=== PATIENT | female | born 1975 | race Caucasian/White ===

== ENCOUNTER 2017-03-24 10:28 | Inpatient (IN) | payer OTHER ==
[2017-03-24] MEDS ORDERED: VENL75TA3 PO (13:36)
[2017-03-24] MEDS ORDERED: ESCI20TA38 PO (13:36)
[2017-03-24] MEDS: OLANZapine Zydis ODT 5 mg Tablet PO SCH ×3 (14:10→20:55)
[2017-03-24] MEDS ORDERED: Alum-Mag Hydrox-Simeth 30 mL Suspension PO PRN (14:10)
[2017-03-24] MEDS ORDERED: Benzocaine-Menthol Lozenge 2/Pkg PO PRN (14:10)
[2017-03-24] MEDS ORDERED: Magnesium Hydroxide 10 mL Oral Concentration PO PRN (14:10)
[2017-03-24] MEDS ORDERED: LORazepam 1 mg Tablet PO PRN (14:10)
[2017-03-24] MEDS: Venlafaxine XR 75 mg ER24 Capsule PO SCH (17:24)
--- NOTE | 2017-03-24 23:41 | HP ---
[address] [address] HISTORY AND PHYSICAL PATIENT: MILY PETERSEN : 1975 MR#: [id number] ADMIT: 03/24/2017 JOB ID: [id number] DATE: 03/24/2017 IDENTIFYING DATA: The patient is a 41-year-old female with a history of major depression, recurrent, with psychotic features who is detained on a 72-hour hold. CHIEF COMPLAINT: The patient was unable to provide any chief complaint and instead appear to shudder at times while standing in the bathroom door way and clutching the frame of the door. HISTORY OF PRESENT ILLNESS: The information is taken from the [facility] report and the [facility] emergency department report. The patient was brought in by her , and they are apparently currently . He reportedly was with her and they were going to slat pickler an automobile, when he noticed that she seemed confused and distracted and took over driving. This rapidly progressed and she was unable to speak at all and intermittently repeated phrases to herself. She has a history of several prior episodes, the 1st after the loss of their son. They have two daughters currently at a friend's house and they normally reside with the patient. She had a similar episode earlier this year and was sent to [place] for psychiatric admission, and diagnosis per her was depression with psychotic features. According to the [facility] notes, [facility] indicate she was previously detained in September 2016 and was in inpatient treatment for approximately two weeks and discharged to community followup with Tiki Cosby. She has a history of multiple CARLY evaluation in attempts to stabilize the community and was detained as gravely disabled when her symptoms were described as "paranoid and delusional thoughts, extreme depression and anxiety, labile affect (ongoing almost continual crying spells), extreme confusion, identity confusion, poor memory...." Records also indicate that she did not believe her was her and questioned the identity of herself and others. According to [facility] notes, law enforcement was called to assist and took her home where she continued to decline and was then brought to the emergency department. According to the , this is the 3rd episode of psychosis, the 1st being after their 7-week-old son and the 2nd earlier this year. He reported that she believes that she is traveling through time and trying to get to when their son was alive and there is something about the eclipse to where she thinks she is no longer able to do this. According to one of the nurses during intake today, she did mention something about and eclipse. According to the patient's daughter, over the weekend she appeared to be down and had spent much time in bed. There is no history of violence or suicidal tendencies, according to the report. Although able to engage verbally with the [facility], she was not able to provide any coherent history. PAST PSYCHIATRIC HISTORY: As noted above, the patient has been previously psychiatrically hospitalized, most recently in September 2016 and is followed in the community, T[facility] Cosby. While hospitalized she was treated with olanzapine 10mg and escitalopram 10mg daily. PAST MEDICAL HISTORY: Anemia during , cardiac abnormalities, gestational diabetes, history of chickenpox, loss of infant June 2014, varicosities. SURGICAL HISTORY: Bartholin gland cyst excision, wisdom tooth extraction. CURRENT MEDICATIONS: 1. Venlafaxine 75 mg twice daily appears to be the most recent. 2. Escitalopram 20 mg daily was prescribed December, does not appear current. ALLERGIES: 1. CHITIN which causes hives. 2. ALCOHOL, hives. 3. CINNAMON, hives. 4. CLARITHROMYCIN, shortness of breath, heart palpitations. 5. VANILLA, hives and cheeks burning. FAMILY HISTORY: Mother with miscarriages and still births. Father with diabetes, sister with cancer and a sister with miscarriages and still births. SOCIAL HISTORY: The patient is apparently from her and has two children, Joanne age 6 and Meme age 3, and four grown stepchildren. PHYSICAL EXAMINATION: Vital signs were 125/99, pulse 121, temp 36.8, SpO2 97%. Otherwise, unremarkable per [facility]. LABORATORY STUDIES: Showed WBC of 12.7, absolute neutrophils 11.6 and absolute lymphocytes 0.7. Anion gap of 15, glucose 174. Urinalysis was straw-colored with trace ketones and urine drug screen was normal. Alcohol was normal. Serum was negative. MENTAL STATUS EXAMINATION: Appearance: The patient is a mildly unkempt-appearing female wearing street clothing. She appears to be crying at times and shuddering, standing in the bathroom doorway. Behavior: As noted above. Speech: The patient is mute. Content of thought: The patient shakes her head no that she has neither suicidal nor homicidal ideation. She does endorse auditory hallucinations and reports that these are command in nature, telling her not to speak. This is obtained through a process of elimination. She denies visual hallucinations. Thought processes: Difficult to assess due to mutism and apparent thought blocking. Insight and judgment: Unable to assess but appeared impaired. Memory and concentration: Could not be assessed due to level of impairment. Orientation: Could not be assessed due to level of impairment. Intelligence: Appears to be in the average range based upon history and education. Sensorium: Unable to assess due to level of impairment. IMPRESSION: The patient is a 41-year-old female with a history of recurrent major depression with psychotic features. She has had a fairly rapid decompensation, as noted in history. According to the , she has responded to psychiatric medications fairly rapidly but, at this point, is refusing all medications. The patient will likely need a medication override to assist with medication compliance. DSM-IV DIAGNOSES: [place] I Major depression, recurrent, with psychotic features, by history. [place] II Deferred. [place] III See past medical history. [place] IV Grief over of child, separation from marriage. [place] V Global Assessment of Functioning 20. PLAN: 1. The patient will be admitted to the inpatient psychiatric unit and provided a safe and secure environment. 2. The patient is currently denying suicidal ideation and has no history of self-injurious behavior, and so will not need a one-to-one at this time. 3. The patient will be encouraged to participate with group and milieu therapy when somewhat more stabilized. 4. The patient will be seen by the treatment team on a daily basis to assess symptoms, side effects and response to treatment. 5. Venlafaxine 75 mg p.o. b.i.d. will be restarted. 6. The patient will be offered olanzapine 5 mg b.i.d. 7. Lorazepam 1 mg p.o. q. 4 hours p.r.n. anxiety or agitation. 8. Hydroxyzine 50 mg p.o. q.4 h. p.r.n. anxiety or agitation. 9. Zolpidem 5 mg nightly p.r.n. insomnia. 10. Anticipated length of stay is approximately 14 days. MTDD
[2017-03-25] MEDS: Venlafaxine XR 75 mg ER24 Capsule PO SCH ×2 (08:00→18:40)
[2017-03-25] MEDS: OLANZapine Zydis ODT 5 mg Tablet PO SCH ×2 (08:30→19:22)
--- NOTE | 2017-03-25 11:09 | PCM.PNPSY ---
Subjective Date of Service Mar 25, 2017 Subjective Per nursing note, patient reported, "it's time. I can't. I did something. oh I' m in the hospital. There's something wrong again. It's so sad. ahahahah I'm so out of control. Aaaaaaa I didn't say it. Hahahaha oh no i said it. Again and again." The patient was heard screaming at 0230.Staff tried to reorient and reassure the patient and offered medication which she spit out. Due to her disruptive behavior, loud screaming, and failure to redirect, she was placed in seclusion at 0245 with security assistance. She was continuing to wail and shriek at times "in an opera like fashion." She was also noted to laugh inappropriately while making short statements. Seclusion seemed to help the patient somewhat, but she remained easily agitated. When seen by the treatment team this morning, she was moving constantly, pulling at clothing, jumping in surprise, she stated, " I was just about to do something...It's too fumy I don' t remember." She was unable to answer questions further. Seclusion was continued as she was unable to respond to redirection to sit on bed, but continued to come towards door. Patient has refused venlafaxine and all but 1 dose of olanzapine. Patient's reports lorazepam effective for reducing symptoms as well. Patient refusing. Sleep: 7.5 hours per staff. Current Medications Current Medications Olanzapine 5 mg BID PO Last administered on 03/24/17t 20:55; Admin Dose 5 MG; Start 03/24/17 at 14:10 Mental Status Exam Appearance: Unkept Attitude: Uncooperative, Other (Jumping, increased startle) Behavior: Stereotypic movements, Distractible Affect: Labile Mood: Euphoric Thought Process/Associations: Loose, Tangential Speech Production: Abundant Speech Rate: Pressured Speech Articulation: Other (mumbled, difficult to understand) Thought Content: Other (unable to assess due to thought disorganization) Delusions: Other Orientation: Unable to assess Memory: Untestable Estimate Intellectual Function: Unable to assess Attention/Concentration & Cogn: Unable to assess Insight: Unable to assess Judgement: Unable to assess Mental Health Plan The patient is a 41-year-old female with a history of recurrent major depression with psychotic features. She has had a fairly rapid decompensation, as noted in history. According to the , she has responded to psychiatric medications fairly rapidly but, at this point, is refusing all medications. The patient will need a medication override to assist with medication compliance. [place] I Major depression, recurrent, with psychotic features, by history. [place] II Deferred. [place] III See past medical history. [place] IV Grief over of child, separation from marriage. [place] V Global Assessment of Functioning 20. Treatments 1. The patient will be admitted to the inpatient psychiatric unit and provided a safe and secure environment. 2. The patient is currently denying suicidal ideation and has no history of self-injurious behavior, and so will not need a one-to-one at this time. 3. The patient will be encouraged to participate with group and milieu therapy when somewhat more stabilized. 4. The patient will be seen by the treatment team on a daily basis to assess symptoms, side effects and response to treatment. 5. Venlafaxine 75 mg p.o. b.i.d. will be restarted. 6. The patient will be offered olanzapine 5 mg b.i.d. Once second opinion approves, will start olanzapine 5mg IM for each dose refused PO. 7. Lorazepam 1-2 mg p.o. q. 4 hours p.r.n. anxiety or agitation. Once second opinion approves, will start lorazepam 1-2mg IM for each dose refused PO 8. Zolpidem 5 mg nightly p.r.n. insomnia. 9. Anticipated length of stay is approximately 14 days. Rajan Sow MD Mar 25, 2017 11:09
[2017-03-25] MEDS ORDERED: OLANZapine Zydis ODT 5 mg Tablet PO ONE (13:05)
[2017-03-25 17:41] VITALS: BP 137/83; PULSE 81; RESP 18
[2017-03-26] MEDS: OLANZapine Zydis ODT 5 mg Tablet PO SCH ×2 (08:04→21:21)
[2017-03-26] MEDS: Venlafaxine XR 75 mg ER24 Capsule PO SCH ×2 (08:04→17:25)
[2017-03-26 10:41] VITALS: BP 132/86; PULSE 98; RESP 20
--- NOTE | 2017-03-26 15:02 | PCM.PNPSY ---
Subjective Date of Service Mar 26, 2017 Subjective I spent 30 minutes both reviewing treatment plan with our clinical team, interviewing the patient and providing supportive/educational psychotherapy. I spent more than 50% of the time counseling the patient. I reviewed the treatment plan with the patient and discussed options available including the potential risks, benefits and side effects. Maura reports a continued severe impairment in thought organization and mood stability. Staff reports that she required seclusion to contain behavior and was bizarre and gesturing wildly on Tuesday. Since then She has been less agitated moved out of seclusion and is participating well in one-to-one unit and group activities. She slept 9 hours and reports severe dysphoria and disorganization in her thoughts. She denies medication side effects. She was able to identify her medications and what they were used to treat. Current Medications Current Medications Olanzapine 10 mg BID PRN IM Last administered on 03/25/17 13:34; Admin Dose 10 MG; Start 03/25/17 at 13:00 Venlafaxine HCl 75 mg BIDWM PO Last administered on 03/26/17 08:04; Admin Dose 75 MG; Start 03/24/17 at 17:30 Mental Status Exam Vital Signs Vital Signs Date Time Temp Pulse Resp B/P Pulse Ox O2 Delivery O2 Flow Rate FiO2 03/26/17 10:41 36.3 98 20 132/86 Appearance: Neat/well groomed Attitude: Pleasant, Cooperative, Other (Jumping, increased startle) Behavior: Stereotypic movements, Distractible Affect: Labile Mood: Dysthymic, Depressed Thought Process/Associations: Loose, Tangential Speech Production: Abundant Speech Rate: Pressured Speech Articulation: Other (mumbled, difficult to understand) Thought Content: Negativistic, Guilt, Obsessions/compulsions, Perseveration Hallucinations: Auditory (Endorses) Consciousness: Hyper-vigilant Orientation: Person, Place, Date, Situation Estimate Intellectual Function: Above Average, Unable to assess Basis for IQ estimate: Awareness current events, Word use/vocabulary, Educational history, Employment history Attention/Concentration & Cogn: Impaired Insight: Limited Judgement: Limited Mental Health Plan The patient is a 41-year-old female with a history of major depression,recurrent , with psychotic features who is detained on a 72-hour hold She has a history of several prior episodes, the 1st after the loss of their son. They have two daughters currently at a friend's house and they normally reside with the patient. She had a similar episode earlier this year and was sent to [place] for psychiatric admission, and diagnosis per her was depression with psychotic features. [facility] indicate she was previously detained in September 2016 and was in inpatient treatment for approximately two weeks and discharged to community followup with Tiki Cosby.She has a history of multiple CARLY evaluation in attempts to stabilize in the community. She was detained as gravely disabled with "paranoid and delusional thoughts, extreme depression and anxiety, labile affect (ongoing almost continual crying spells), extreme confusion, identity confusion, poor memory...." Records also indicate that she did not believe her was her and questioned the identity of herself and others. [place] I Major depression, recurrent, with psychotic features, by history. [place] II Deferred. [place] III See past medical history. [place] IV Grief over of child, separation from marriage. [place] V Global Assessment of Functioning 20. Treatments Patient is being provided with a high degree of safety through our unit structure and active adult engagement provided by our mental health professionals, mental health technicians, psychiatric nurses and myself. We are focusing on developing improved coping skills and identifying stressors that may have led to current episode. We will attempt to: * Integrate into therapeutic groups, milieu and individual therapy. * Maintain in a closely monitored and structured unit * Provide low-stimulation environment * Obtain collateral data to assist in treatment planning * Assess degree of lability of affect and impulse control * Complete safety plan * Decrease frequency of relapse and need for re-hospitalization * Denies thoughts of harm to self and/or others * Establish a consistent sleep pattern * Medication effective in stabilization of mood and/or thought process * Reduce the risk of imminent harm to self and/or others by providing a safe environment * Tolerates medication without side effects Patient will be on the following psychiatric medications: Venlafaxine 75 mg p.o. b.i.d. olanzapine 5 mg b.i.d. second opinion approved, will start olanzapine 5mg IM for each dose refuse Education: Educate patient about recreational drug use as an etiology Educate about metabolic etiologies related to obesity Patient's legal status Patient is on a 14 day involuntary treatment hold. Anticipated number of hospital days to achieve above goals: 14 Disposition: Home Kristian Solomon MD Mar 26, 2017 15:02
[2017-03-27] MEDS: LORazepam 1 mg Tablet PO PRN ×2 (00:16→10:44)
[2017-03-27] MEDS: Venlafaxine XR 75 mg ER24 Capsule PO SCH ×2 (07:58→17:19)
[2017-03-27] MEDS: OLANZapine Zydis ODT 5 mg Tablet PO SCH ×2 (07:58→20:12)
--- NOTE | 2017-03-27 14:11 | PCM.PNPSY ---
Subjective Date of Service Mar 27, 2017 Subjective I spent 30 minutes both reviewing treatment plan with our clinical team, interviewing the patient and providing supportive/educational psychotherapy. I spent more than 50% of the time counseling the patient. I reviewed the treatment plan with the patient and discussed options available including the potential risks, benefits and side effects. Maura reports a continued severe impairment in thought organization and mood stability. "I am remembering horrible things, oh my God O my God". Staff reports that she has not required seclusion to contain behavior and was less bizarre over the past 24 hours. She has been participating well in one-to-one unit and group activities. She slept 7 hours and reports severe dysphoria and disorganization in her thoughts. She denies medication side effects. She was able to identify her medications and what they were used to treat. Mental Status Exam Appearance: Neat/well groomed Attitude: Pleasant, Cooperative, Other (Jumping, increased startle) Behavior: Stereotypic movements, Distractible Affect: Labile Mood: Dysthymic, Depressed Thought Process/Associations: Loose, Tangential Speech Production: Abundant Speech Rate: Pressured Speech Articulation: Other (mumbled, difficult to understand) Thought Content: Negativistic, Guilt, Obsessions/compulsions, Perseveration Hallucinations: Auditory (Endorses) Consciousness: Hyper-vigilant Orientation: Person, Place, Date, Situation Estimate Intellectual Function: Above Average, Unable to assess Basis for IQ estimate: Awareness current events, Word use/vocabulary, Educational history, Employment history Attention/Concentration & Cogn: Impaired Insight: Limited Judgement: Limited Mental Health Plan The patient is a 41-year-old female with a history of major depression,recurrent , with psychotic features who is detained on a 72-hour hold She has a history of several prior episodes, the 1st after the loss of their son. They have two daughters currently at a friend's house and they normally reside with the patient. She had a similar episode earlier this year and was sent to [place] for psychiatric admission, and diagnosis per her was depression with psychotic features. [facility] indicate she was previously detained in September 2016 and was in inpatient treatment for approximately two weeks and discharged to community followup with Tiki Cosby.She has a history of multiple CARLY evaluation in attempts to stabilize in the community. She was detained as gravely disabled with "paranoid and delusional thoughts, extreme depression and anxiety, labile affect (ongoing almost continual crying spells), extreme confusion, identity confusion, poor memory...." Records also indicate that she did not believe her was her and questioned the identity of herself and others. Today she was approximately 20% improved with decreased emotional lability and an ability to converse with me in one to one in a more logical and linear manner. She denies medication side effects and will continue the current treatment [place] I Major depression, recurrent, with psychotic features, by history. [place] II Deferred. [place] III See past medical history. [place] IV Grief over of child, separation from marriage. [place] V Global Assessment of Functioning 30. Treatments Patient is being provided with a high degree of safety through our unit structure and active adult engagement provided by our mental health professionals, mental health technicians, psychiatric nurses and myself. We are focusing on developing improved coping skills and identifying stressors that may have led to current episode. We will attempt to: * Integrate into therapeutic groups, milieu and individual therapy. * Maintain in a closely monitored and structured unit * Provide low-stimulation environment * Obtain collateral data to assist in treatment planning * Assess degree of lability of affect and impulse control * Complete safety plan * Decrease frequency of relapse and need for re-hospitalization * Denies thoughts of harm to self and/or others * Establish a consistent sleep pattern * Medication effective in stabilization of mood and/or thought process * Reduce the risk of imminent harm to self and/or others by providing a safe environment * Tolerates medication without side effects Patient will be on the following psychiatric medications: Venlafaxine 75 mg p.o. b.i.d. Olanzapine 10 mg hs second opinion approved, will start olanzapine 5mg IM for each dose refuse Education: Educate patient about recreational drug use as an etiology Educate about metabolic etiologies related to obesity Patient's legal status Patient is on a 14 day MR involuntary treatment hold. Anticipated number of hospital days to achieve above goals: 14 Disposition: Home Kristian Solomon MD Mar 27, 2017 14:11
[2017-03-28] MEDS: LORazepam 1 mg Tablet PO PRN (01:46)
[2017-03-28 08:00] VITALS: BP 116/77; PULSE 96
[2017-03-28] MEDS: Venlafaxine XR 75 mg ER24 Capsule PO SCH ×2 (09:40→17:25)
--- NOTE | 2017-03-28 14:08 | PCM.PNPSY ---
Subjective Date of Service Mar 28, 2017 Subjective I spent 30 minutes both reviewing treatment plan with our clinical team, interviewing the patient and providing supportive/educational psychotherapy. I spent more than 50% of the time counseling the patient. I reviewed the treatment plan with the patient and discussed options available including the potential risks, benefits and side effects. Muara reports a continued severe impairment in thought organization and mood stability. "I am better but still really struggling". Staff reports that she has not required seclusion to contain behavior and was less bizarre over the past 48 hours. She has been participating well in one-to-one unit and group activities. She slept 4 hours and reports continued severe dysphoria and disorganization in her thoughts. She denies medication side effects. Current Medications Current Medications Olanzapine 10 mg HS PO Last administered on 03/27/17t 20:12; Admin Dose 10 MG; Start 03/27/17 at 21:00 Mental Status Exam Vital Signs Vital Signs Date Time Temp Pulse Resp B/P Pulse Ox O2 Delivery O2 Flow Rate FiO2 03/28/17 08:00 36.1 96 116/77 Appearance: Neat/well groomed Attitude: Pleasant, Cooperative Behavior: No unusual behavior Affect: Well Modulated/Appropriate Mood: Dysthymic, Depressed Thought Process/Associations: Goal Directed Speech Production: Normal Speech Rate: Normal Speech Articulation: Normal Thought Content: Negativistic, Guilt, Obsessions/compulsions, Perseveration Consciousness: Alert Orientation: Person, Place, Date, Situation Estimate Intellectual Function: Above Average, Unable to assess Basis for IQ estimate: Awareness current events, Word use/vocabulary, Educational history, Employment history Attention/Concentration & Cogn: Impaired Insight: Limited Judgement: Limited Mental Health Plan The patient is a 41-year-old female with a history of major depression,recurrent , with psychotic features who is detained on a 72-hour hold She has a history of several prior episodes, the 1st after the loss of their son. They have two daughters currently at a friend's house and they normally reside with the patient. She had a similar episode earlier this year and was sent to [place] for psychiatric admission, and diagnosis per her was depression with psychotic features. [facility] indicate she was previously detained in September 2016 and was in inpatient treatment for approximately two weeks and discharged to community followup with Tiki Cosby.She has a history of multiple CARLY evaluation in attempts to stabilize in the community. She was detained as gravely disabled with "paranoid and delusional thoughts, extreme depression and anxiety, labile affect (ongoing almost continual crying spells), extreme confusion, identity confusion, poor memory...." Records also indicate that she did not believe her was her and questioned the identity of herself and others. Today she was again able to converse with me in one to one in a more logical and linear manner. She appears to be making gradual but steady improvement in thought organization and mood stability. She denies medication side effects and will continue the current treatment. She did not wish to change the medications at this time. [place] I Major depression, recurrent, with psychotic features, by history. [place] II Deferred. [place] III See past medical history. [place] IV Grief over of child, separation from marriage. [place] V Global Assessment of Functioning 35. Treatments Patient is being provided with a high degree of safety through our unit structure and active adult engagement provided by our mental health professionals, mental health technicians, psychiatric nurses and myself. We are focusing on developing improved coping skills and identifying stressors that may have led to current episode. We will attempt to: * Integrate into therapeutic groups, milieu and individual therapy. * Maintain in a closely monitored and structured unit * Provide low-stimulation environment * Obtain collateral data to assist in treatment planning * Assess degree of lability of affect and impulse control * Complete safety plan * Decrease frequency of relapse and need for re-hospitalization * Denies thoughts of harm to self and/or others * Establish a consistent sleep pattern * Medication effective in stabilization of mood and/or thought process * Reduce the risk of imminent harm to self and/or others by providing a safe environment * Tolerates medication without side effects Patient will be on the following psychiatric medications: Venlafaxine 75 mg p.o. b.i.d. Olanzapine 10 mg hs second opinion approved, will start olanzapine 5mg IM for each dose refuse Education: Educate patient about recreational drug use as an etiology Educate about metabolic etiologies related to obesity Patient's legal status Patient is on a 14 day involuntary treatment hold. Anticipated number of hospital days to achieve above goals: 14 Disposition: Home Kristian Solomon MD Mar 28, 2017 14:08
[2017-03-28] MEDS: OLANZapine Zydis ODT 5 mg Tablet PO SCH (19:41)
[2017-03-29] MEDS: LORazepam 1 mg Tablet PO PRN (03:01)
[2017-03-29] MEDS: OLANZapine Zydis ODT 5 mg Tablet PO PRN (05:30)
[2017-03-29 08:00] VITALS: BP 127/79; PULSE 82; RESP 15
[2017-03-29] MEDS: Venlafaxine XR 75 mg ER24 Capsule PO SCH ×2 (08:00→17:39)
--- NOTE | 2017-03-29 12:12 | PCM.PNPSY ---
Subjective Date of Service Mar 29, 2017 Subjective I spent 30 minutes both reviewing treatment plan with our clinical team, interviewing the patient and providing supportive/educational psychotherapy. I spent more than 50% of the time counseling the patient. I reviewed the treatment plan with the patient and discussed options available including the potential risks, benefits and side effects. Maura reports a slight improvement today in thought organization and mood stability. "I am better but now starting to worry about life after the hospital ". Staff reports that she has required seclusion last evening to contain behavior but has shown significant improvement in impulse control over the past 48 hours. She has been participating well in one-to-one unit and group activities. She slept 1.5 hours and reports continued dysphoria but improved organization in her thoughts. She denies medication side effects. Current Medications Current Medications Olanzapine 10 mg HS PO Last administered on 03/27/17t 20:12; Admin Dose 10 MG; Start 03/27/17 at 21:00 Mental Status Exam Appearance: Neat/well groomed Attitude: Pleasant, Cooperative Behavior: No unusual behavior Affect: Well Modulated/Appropriate Mood: Dysthymic Thought Process/Associations: Goal Directed Speech Production: Normal Speech Rate: Normal Speech Articulation: Normal Thought Content: Negativistic Danger to Self/Suicidal Ideati: None Danger to Others: None Consciousness: Alert Orientation: Person, Place, Date, Situation Estimate Intellectual Function: Above Average, Unable to assess Basis for IQ estimate: Awareness current events, Word use/vocabulary, Educational history, Employment history Attention/Concentration & Cogn: Impaired Insight: Limited Judgement: Limited Mental Health Plan The patient is a 41-year-old female with a history of major depression,recurrent , with psychotic features who is detained on a 72-hour hold She has a history of several prior episodes, the 1st after the loss of their son. They have two daughters currently at a friend's house and they normally reside with the patient. She had a similar episode earlier this year and was sent to [place] for psychiatric admission, and diagnosis per her was depression with psychotic features. [facility] indicate she was previously detained in September 2016 and was in inpatient treatment for approximately two weeks and discharged to community followup with Tiki Cosby.She has a history of multiple CARLY evaluation in attempts to stabilize in the community. She was detained as gravely disabled with "paranoid and delusional thoughts, extreme depression and anxiety, labile affect (ongoing almost continual crying spells), extreme confusion, identity confusion, poor memory...." Records also indicate that she did not believe her was her and questioned the identity of herself and others. Today she was again able to converse with me in one to one in a more logical and linear manner. She appears to be making gradual but steady improvement in thought organization and mood stability. She denies medication side effects and will continue the current treatment. She did request to change the medications by discontinuing olanzapine. I encouraged her to stay the course as I believe The combination of olanzapine and Effexor is required to get her out of and maintain her out of psychotic state. [place] I Major depression, recurrent, with psychotic features, by history. [place] II Deferred. [place] III See past medical history. [place] IV Grief over of child, separation from marriage. [place] V Global Assessment of Functioning 35. Treatments Patient is being provided with a high degree of safety through our unit structure and active adult engagement provided by our mental health professionals, mental health technicians, psychiatric nurses and myself. We are focusing on developing improved coping skills and identifying stressors that may have led to current episode. We will attempt to: * Integrate into therapeutic groups, milieu and individual therapy. * Maintain in a closely monitored and structured unit * Provide low-stimulation environment * Obtain collateral data to assist in treatment planning * Assess degree of lability of affect and impulse control * Complete safety plan * Decrease frequency of relapse and need for re-hospitalization * Denies thoughts of harm to self and/or others * Establish a consistent sleep pattern * Medication effective in stabilization of mood and/or thought process * Reduce the risk of imminent harm to self and/or others by providing a safe environment * Tolerates medication without side effects Patient will be on the following psychiatric medications: Venlafaxine 75 mg p.o. b.i.d. Olanzapine 10 mg hs second opinion approved, will start olanzapine 5mg IM for each dose refuse Education: Educate patient about recreational drug use as an etiology Educate about metabolic etiologies related to obesity Patient's legal status Patient is on a 14 day involuntary treatment hold. Anticipated number of hospital days to achieve above goals: 14 Disposition: Home Kristian Solomon MD Mar 29, 2017 12:12
[2017-03-29] MEDS: OLANZapine Zydis ODT 5 mg Tablet PO SCH (20:51)
[2017-03-30] MEDS: Venlafaxine XR 75 mg ER24 Capsule PO SCH ×2 (10:08→17:23)
[2017-03-30 12:21] VITALS: BP 130/84; PULSE 79
--- NOTE | 2017-03-30 13:20 | PCM.PNPSY ---
Subjective Date of Service Mar 30, 2017 Subjective I spent 30 minutes both reviewing treatment plan with our clinical team, interviewing the patient and providing supportive/educational psychotherapy. I spent more than 50% of the time counseling the patient. I reviewed the treatment plan with the patient and discussed options available including the potential risks, benefits and side effects. Maura reports a slight improvement today in thought organization and mood stability. "I have trouble at night and cannot remember the things a deed in the morning". Staff reports that she required seclusion last evening to contain behavior but during the day she has shown significant improvement in impulse control over the past 72 hours. She has been participating well in one- to-one unit and group activities. She slept 6 hours and repeats continued dysphoria but improved organization in her thoughts. She denies medication side effects. Mental Status Exam Vital Signs Vital Signs Date Time Temp Pulse Resp B/P Pulse Ox O2 Delivery O2 Flow Rate FiO2 03/30/17 12:21 36.3 79 130/84 Appearance: Neat/well groomed Attitude: Pleasant, Cooperative Behavior: No unusual behavior Affect: Well Modulated/Appropriate Mood: Dysthymic Thought Process/Associations: Goal Directed Speech Production: Normal Speech Rate: Normal Speech Articulation: Normal Thought Content: Negativistic Danger to Self/Suicidal Ideati: None Danger to Others: None Consciousness: Alert Orientation: Person, Place, Date, Situation Estimate Intellectual Function: Above Average, Unable to assess Basis for IQ estimate: Awareness current events, Word use/vocabulary, Educational history, Employment history Attention/Concentration & Cogn: Impaired Insight: Limited Judgement: Limited Mental Health Plan The patient is a 41-year-old female with a history of major depression,recurrent , with psychotic features who is detained on a 72-hour hold She has a history of several prior episodes, the 1st after the loss of their son. They have two daughters currently at a friend's house and they normally reside with the patient. She had a similar episode earlier this year and was sent to [place] for psychiatric admission, and diagnosis per her was depression with psychotic features. [facility] indicate she was previously detained in September 2016 and was in inpatient treatment for approximately two weeks and discharged to community followup with Tiki Cosby.She has a history of multiple CARLY evaluation in attempts to stabilize in the community. She was detained as gravely disabled with "paranoid and delusional thoughts, extreme depression and anxiety, labile affect (ongoing almost continual crying spells), extreme confusion, identity confusion, poor memory...." Records also indicate that she did not believe her was her and questioned the identity of herself and others. Today she was again able to converse with me in one to one in a more logical and linear manner. She appears to be making gradual but steady improvement in thought organization and mood stability. She denies medication side effects and will continue the current treatment. She did request to change the medications by discontinuing olanzapine. I encouraged her to stay the course as I believe The combination of olanzapine and Effexor is required to get her out of and maintain her out of psychotic state. [place] I Major depression, recurrent, with psychotic features, by history. [place] II Deferred. [place] III See past medical history. [place] IV Grief over of child, separation from marriage. [place] V Global Assessment of Functioning 35. Treatments Patient is being provided with a high degree of safety through our unit structure and active adult engagement provided by our mental health professionals, mental health technicians, psychiatric nurses and myself. We are focusing on developing improved coping skills and identifying stressors that may have led to current episode. We will attempt to: * Integrate into therapeutic groups, milieu and individual therapy. * Maintain in a closely monitored and structured unit * Provide low-stimulation environment * Obtain collateral data to assist in treatment planning * Assess degree of lability of affect and impulse control * Complete safety plan * Decrease frequency of relapse and need for re-hospitalization * Denies thoughts of harm to self and/or others * Establish a consistent sleep pattern * Medication effective in stabilization of mood and/or thought process * Reduce the risk of imminent harm to self and/or others by providing a safe environment * Tolerates medication without side effects Patient will be on the following psychiatric medications: Venlafaxine 75 mg p.o. b.i.d. Olanzapine 10 mg hs second opinion approved, will start olanzapine 5mg IM for each dose refuse Education: Educate patient about recreational drug use as an etiology Educate about metabolic etiologies related to obesity Patient's legal status Patient is on a 14 day involuntary treatment hold. Anticipated number of hospital days to achieve above goals: 14 Disposition: Home Kristian Solomon MD Mar 30, 2017 13:20
[2017-03-30] MEDS: OLANZapine Zydis ODT 5 mg Tablet PO SCH (21:29)
[2017-03-31 08:00] VITALS: BP 113/75; PULSE 86; RESP 16
[2017-03-31] MEDS: Venlafaxine XR 75 mg ER24 Capsule PO SCH ×2 (08:24→17:30)
--- NOTE | 2017-03-31 13:37 | PCM.PNPSY ---
Subjective Date of Service Mar 31, 2017 Subjective I spent 30 minutes both reviewing treatment plan with our clinical team, interviewing the patient and providing supportive/educational psychotherapy. I spent more than 50% of the time counseling the patient. I reviewed the treatment plan with the patient and discussed options available including the potential risks, benefits and side effects. Maura reports an improvement today in thought organization and mood stability. "I had trouble at night and cannot remember the things a did in the morning". Staff reports that she required seclusion last evening again to contain behavior but during the day she has shown significant improvement in impulse control over the past 72 hours during the day. She has been participating well in one-to-one unit and group activities. She slept 6 hours over the past 24 and repeats continued dysphoria but improved organization in her thoughts. Mental Status Exam Vital Signs Vital Signs Date Time Temp Pulse Resp B/P Pulse Ox O2 Delivery O2 Flow Rate FiO2 03/31/17 08:00 35.8 86 16 113/75 Appearance: Neat/well groomed Attitude: Pleasant, Cooperative Behavior: No unusual behavior Affect: Well Modulated/Appropriate Mood: Dysthymic Thought Process/Associations: Goal Directed Speech Production: Normal Speech Rate: Normal Speech Articulation: Normal Thought Content: Negativistic Danger to Self/Suicidal Ideati: None Danger to Others: None Consciousness: Alert Orientation: Person, Place, Date, Situation Estimate Intellectual Function: Above Average, Unable to assess Basis for IQ estimate: Awareness current events, Word use/vocabulary, Educational history, Employment history Attention/Concentration & Cogn: Impaired Insight: Limited Judgement: Limited Mental Health Plan The patient is a 41-year-old female with a history of major depression,recurrent , with psychotic features who is detained on a 72-hour hold She has a history of several prior episodes, the 1st after the loss of their son. They have two daughters currently at a friend's house and they normally reside with the patient. She had a similar episode earlier this year and was sent to [place] for psychiatric admission, and diagnosis per her was depression with psychotic features. [facility] indicate she was previously detained in September 2016 and was in inpatient treatment for approximately two weeks and discharged to community followup with Tiki Cosby.She has a history of multiple CARLY evaluation in attempts to stabilize in the community. She was detained as gravely disabled with "paranoid and delusional thoughts, extreme depression and anxiety, labile affect (ongoing almost continual crying spells), extreme confusion, identity confusion, poor memory...." Records also indicate that she did not believe her was her and questioned the identity of herself and others. Today she was again able to converse with me in one to one in a logical and linear manner. She appears to be making gradual but steady improvement in thought organization and mood stability. She denies medication side effects and will continue the current treatment. She did request to change the medications by discontinuing olanzapine. I encouraged her to stay the course as I believe The combination of olanzapine and Effexor is required to get her out of and maintain her out of psychotic state. [place] I Major depression, recurrent, with psychotic features, by history. [place] II Deferred. [place] III See past medical history. [place] IV Grief over of child, separation from marriage. [place] V Global Assessment of Functioning 35. Treatments Patient is being provided with a high degree of safety through our unit structure and active adult engagement provided by our mental health professionals, mental health technicians, psychiatric nurses and myself. We are focusing on developing improved coping skills and identifying stressors that may have led to current episode. We will attempt to: * Integrate into therapeutic groups, milieu and individual therapy. * Maintain in a closely monitored and structured unit * Provide low-stimulation environment * Obtain collateral data to assist in treatment planning * Assess degree of lability of affect and impulse control * Complete safety plan * Decrease frequency of relapse and need for re-hospitalization * Denies thoughts of harm to self and/or others * Establish a consistent sleep pattern * Medication effective in stabilization of mood and/or thought process * Reduce the risk of imminent harm to self and/or others by providing a safe environment * Tolerates medication without side effects Patient will be on the following psychiatric medications: Venlafaxine 75 mg p.o. b.i.d. Olanzapine 10 mg hs second opinion approved, will start olanzapine 5mg IM for each dose refuse Education: Educate patient about recreational drug use as an etiology Educate about metabolic etiologies related to obesity Patient's legal status Patient is on a 14 day involuntary treatment hold. Anticipated number of hospital days to achieve above goals: 14 Disposition: Home Kristian Solomon MD Mar 31, 2017 13:37
[2017-03-31] MEDS: OLANZapine Zydis ODT 5 mg Tablet PO SCH (21:29)
[2017-04-01] MEDS: Venlafaxine XR 75 mg ER24 Capsule PO SCH ×2 (08:53→17:52)
[2017-04-01 11:00] VITALS: BP 133/86; PULSE 85; RESP 18
--- NOTE | 2017-04-01 12:31 | PCM.PNPSY ---
Subjective Date of Service Apr 01, 2017 Subjective I spent 30 minutes both reviewing treatment plan with our clinical team, interviewing the patient and providing supportive/educational psychotherapy. I spent more than 50% of the time counseling the patient. I reviewed the treatment plan with the patient and discussed options available including the potential risks, benefits and side effects. Maura reports feeling irritable and is asking for discharge. She does not believe she is getting the help that she wants here. "I was put in seclusion for no reason". Staff reports that she required seclusion last evening again to contain [id number] behavior and screaming for hours during the night but during the day she has shown significant impulse control during the day. She has been participating well in one-to-one unit and group activities. She slept 6 hours over the past 24 and repeats continued dysphoria but improved organization in her thoughts. She currently denies suicidal ideation or auditory hallucinations, and Mental Status Exam Appearance: Neat/well groomed Attitude: Pleasant, Cooperative Behavior: No unusual behavior Affect: Well Modulated/Appropriate Mood: Dysthymic Thought Process/Associations: Goal Directed Speech Production: Normal Speech Rate: Normal Speech Articulation: Normal Thought Content: Negativistic, Perseveration Danger to Self/Suicidal Ideati: None Danger to Others: None Consciousness: Alert Orientation: Person, Place, Date, Situation Estimate Intellectual Function: Above Average, Unable to assess Basis for IQ estimate: Awareness current events, Word use/vocabulary, Educational history, Employment history Attention/Concentration & Cogn: Impaired Insight: Limited Judgement: Limited Mental Health Plan The patient is a 41-year-old female with a history of major depression,recurrent , with psychotic features who is detained on a 72-hour hold She has a history of several prior episodes, the 1st after the loss of their son. They have two daughters currently at a friend's house and they normally reside with the patient. She had a similar episode earlier this year and was sent to [place] for psychiatric admission, and diagnosis per her was depression with psychotic features. [facility] indicate she was previously detained in September 2016 and was in inpatient treatment for approximately two weeks and discharged to community followup with Tiki Cosby.She has a history of multiple CARLY evaluation in attempts to stabilize in the community. She was detained as gravely disabled with "paranoid and delusional thoughts, extreme depression and anxiety, labile affect (ongoing almost continual crying spells), extreme confusion, identity confusion, poor memory...." Records also indicate that she did not believe her was her and questioned the identity of herself and others. Today she was again able to converse with me in one to one in a logical and linear manner. She appears to be making gradual but steady improvement in thought organization and mood stability. She denies medication side effects and will continue the current treatment. She did request to change the medications by discontinuing olanzapine. I encouraged her to stay the course as I believe The combination of olanzapine and Effexor is required to get her out of and maintain her out of psychotic state. [place] I Major depression, recurrent, with psychotic features, by history. PTSD features [place] II borderline personality traits [place] III See past medical history. [place] IV Grief over of child, separation from marriage. [place] V Global Assessment of Functioning 35. Treatments Patient is being provided with a high degree of safety through our unit structure and active adult engagement provided by our mental health professionals, mental health technicians, psychiatric nurses and myself. We are focusing on developing improved coping skills and identifying stressors that may have led to current episode. We will attempt to: * Integrate into therapeutic groups, milieu and individual therapy. * Maintain in a closely monitored and structured unit * Provide low-stimulation environment * Obtain collateral data to assist in treatment planning * Assess degree of lability of affect and impulse control * Complete safety plan * Decrease frequency of relapse and need for re-hospitalization * Denies thoughts of harm to self and/or others * Establish a consistent sleep pattern * Medication effective in stabilization of mood and/or thought process * Reduce the risk of imminent harm to self and/or others by providing a safe environment * Tolerates medication without side effects Patient will be on the following psychiatric medications: Venlafaxine 75 mg p.o. b.i.d. Olanzapine 10 mg hs second opinion approved, will start olanzapine 5mg IM for each dose refuse Education: Educate patient about recreational drug use as an etiology Educate about metabolic etiologies related to obesity Patient's legal status Patient is on a 14 day MR involuntary treatment hold. Anticipated number of hospital days to achieve above goals: I recommend patient be discharged on a 90 LR O at the end of her 14 MR. Disposition: Home Kristian Solomon MD Apr 01, 2017 12:31
[2017-04-01] MEDS: OLANZapine Zydis ODT 5 mg Tablet PO SCH (22:14)
[2017-04-02] MEDS: OLANZapine Zydis ODT 5 mg Tablet PO PRN ×2 (00:15→23:24)
[2017-04-02] MEDS: Venlafaxine XR 75 mg ER24 Capsule PO SCH ×2 (09:18→17:41)
[2017-04-02 09:30] VITALS: BP 120/76; PULSE 80; RESP 17
[2017-04-02] MEDS ORDERED: Venlafaxine XR 75 mg ER24 Capsule PO ONE (12:40)
--- NOTE | 2017-04-02 14:50 | PCM.PNPSY ---
Subjective Date of Service Apr 02, 2017 Subjective The patient reports that "I feel rejuvenated, extremely hopeful. Bursting with love." The patient denies racing thoughts and reports that her focus is improved. She reports still occasionally seeing things out of the corner of her eye but no other hipolito hallucinations. She reports both her anxiety and depression decreased. We discussed the fact that she is still taking olanzapine and has been on Effexor 150 mg for some time. We discussed the increased norepinephrine effect at higher doses and the patient was agreeable to a dose increase. Patient still perseverating on use of seclusion in the past. Sleep: 4.75 hours Appetite: "Normal " Suicidal and homicidal ideation: Denies Auditory hallucinations: Denies Visual hallucinations: Movement out of the corner of her eye. Other Psychotic Symptoms: N/a Anxiety: "Down quite a bit" 09/10 Depression: 11/08 Current Medications Current Medications Venlafaxine HCl 75 mg ONCE ONCE PO Last administered on 04/02/17t 12:52; Admin Dose 75 MG; Start 04/02/17 at 12:40; Stop 04/02/17 at 12:49; Status DC Mental Status Exam Vital Signs Vital Signs Date Time Temp Pulse Resp B/P Pulse Ox O2 Delivery O2 Flow Rate FiO2 04/02/17 09:30 36.1 80 17 120/76 Appearance: Neat/well groomed Attitude: Pleasant, Cooperative Behavior: No unusual behavior Affect: Well Modulated/Appropriate Mood: Dysthymic Thought Process/Associations: Goal Directed Speech Production: Normal Speech Rate: Normal Speech Articulation: Normal Thought Content: Negativistic, Perseveration Danger to Self/Suicidal Ideati: None Danger to Others: None Hallucinations: Auditory (Denies), Visual (Endorses) Consciousness: Alert Orientation: Person, Place, Date, Situation Estimate Intellectual Function: Average Basis for IQ estimate: Word use/vocabulary, Educational history, Employment history Attention/Concentration & Cogn: Grossly Intact Insight: Limited Judgement: Limited Mental Health Plan The patient is a 41-year-old female with a history of major depression,recurrent , with psychotic features who was detained on a 72-hour hold. She has a history of several prior episodes, the 1st after the loss of their son. She had a similar episode earlier this year and was sent to [place] for psychiatric admission, and diagnosis per her was depression with psychotic features. [facility] indicate she was previously detained in September 2016 and was in inpatient treatment for approximately two weeks and discharged to community followup with Tiki Cosby. She has a history of multiple CARLY evaluation in attempts to stabilize in the community. She was detained as gravely disabled with "paranoid and delusional thoughts, extreme depression and anxiety, labile affect (ongoing almost continual crying spells), extreme confusion, identity confusion, poor memory...." Records also indicate that she did not believe her was her and questioned the identity of herself and others. The patient has made significant improvement with the addition of olanzapine; however, she is still reporting both anxiety and depression continues to perseverate on prior seclusion. We discussed the need to increase venlafaxine in order to reduce the need for olanzapine. We also discussed the changing neurotransmitter profile at higher doses of venlafaxine which the patient felt positive about as she believes she needs more norepinephrine reuptake inhibition. [place] I Major depression, recurrent, with psychotic features PTSD features [place] II borderline personality traits [place] III See past medical history. [place] IV Grief over of child, separation from marriage. [place] V Global Assessment of Functioning 35. Treatments 1. The patient is admitted to the inpatient unit and will be provided a safe and secure environment. 2. The patient is denying current active suicidality and is not in need of a one-to-one at this time. 3. The patient is encouraged to participate with group and milieu activities. 4. The patient will be seen by the treatment team on a daily basis to assess symptoms, side effects and response to treatment. 5. Continue olanzapine 10 mg nightly. 6. Increase venlafaxine XR to 225 mg daily 7. Continue to use olanzapine 5 mg as needed for agitation. 8. Zolpidem tartrate 5 mg p.o. nightly p.r.n. insomnia. 9. Anticipated length of stay is 5-7 days. Patient is on a 14 day involuntary treatment hold. Previous recommendation that patient be discharged on a 90 LR O at the end of her 14 Rajan Amos MD Apr 02, 2017 14:50
[2017-04-02] MEDS: OLANZapine Zydis ODT 5 mg Tablet PO SCH (21:02)
[2017-04-03] MEDS: Venlafaxine XR 75 mg ER24 Capsule PO SCH (08:51)
[2017-04-03 09:30] VITALS: BP 121/81; PULSE 85; RESP 16
--- NOTE | 2017-04-03 14:08 | PCM.PNPSY ---
Subjective Date of Service Apr 03, 2017 Subjective The patient reports that she is now speaking with her but she still feels that she needs to divorce in order to move forward. Although she was reported to have slept poorly by staff, she reports feeling rested today. She reports that her appetite is increased today. We discussed potential metabolic issues and she reported that she had previously gained weight while treated with olanzapine. She denies any side effects with the increase in venlafaxine. She reports feeling somewhat anemic and requests an iron supplement. Sleep: 3.5 hours per staff, patient reports "slept okay, feel rested" Appetite: "Inhaling food" discussed setting aside 1/4-1/3 of meal to prevent weight gain/help with weight loss Suicidal and homicidal ideation: Denies Auditory hallucinations: Denies Visual hallucinations: Denies Other Psychotic Symptoms: N/A Anxiety: -10/08 Depression: -11/08 Current Medications Current Medications Venlafaxine HCl 75 mg ONCE ONCE PO Last administered on 04/02/17 12:52; Admin Dose 75 MG; Start 04/02/17 at 12:40; Stop 04/02/17 at 12:49; Status DC Venlafaxine HCl 225 mg DAILYWM PO Last administered on 04/03/17 08:51; Admin Dose 225 MG; Start 04/03/17 at 08:00 Mental Status Exam Vital Signs Vital Signs Date Time Temp Pulse Resp B/P Pulse Ox O2 Delivery O2 Flow Rate FiO2 04/03/17 09:30 36.3 85 16 121/81 Appearance: Neat/well groomed Attitude: Pleasant, Cooperative Behavior: No unusual behavior Affect: Well Modulated/Appropriate Mood: Dysthymic Thought Process/Associations: Goal Directed Speech Production: Normal Speech Rate: Normal Speech Articulation: Normal Thought Content: Negativistic, Perseveration (on relationship, but appears appropriate to situation) Danger to Self/Suicidal Ideati: None Danger to Others: None Hallucinations: Auditory (Denies), Visual (Denies) Consciousness: Alert Orientation: Person, Place, Date, Situation Memory: Grossly Intact Estimate Intellectual Function: Average Basis for IQ estimate: Word use/vocabulary, Educational history, Employment history Attention/Concentration & Cogn: Grossly Intact Insight: Good Judgement: Good Mental Health Plan The patient is a 41-year-old female with a history of major depression,recurrent , with psychotic features who was detained on a 72-hour hold. She has a history of several prior episodes, the 1st after the loss of their son. She had a similar episode earlier this year and was sent to [place] for psychiatric admission, and diagnosis per her was depression with psychotic features. [facility] indicate she was previously detained in September 2016 and was in inpatient treatment for approximately two weeks and discharged to community followup with Tiki Cosby. She has a history of multiple CARLY evaluation in attempts to stabilize in the community. She was detained as gravely disabled with "paranoid and delusional thoughts, extreme depression and anxiety, labile affect (ongoing almost continual crying spells), extreme confusion, identity confusion, poor memory...." Records also indicate that she did not believe her was her and questioned the identity of herself and others. The patient has made significant improvement with the addition of olanzapine. The patient reports no particular side effects with the increase in venlafaxine and appears objectively calm her than yesterday. We discussed eventually staying on the increased venlafaxine and tapering off olanzapine in order to avoid metabolic issues and the patient was agreeable to this plan. The patient reports a history of anemia and will follow-up blood work and start iron supplements. The patient declines a multivitamin. [place] I Major depression, recurrent, with psychotic features PTSD features [place] II borderline personality traits [place] III See past medical history. [place] IV Grief over of child, separation from marriage. [place] V Global Assessment of Functioning 40. Treatments 1. The patient is admitted to the inpatient unit and will be provided a safe and secure environment. 2. The patient is denying current active suicidality and is not in need of a one-to-one at this time. 3. The patient is encouraged to participate with group and milieu activities. 4. The patient will be seen by the treatment team on a daily basis to assess symptoms, side effects and response to treatment. 5. Continue olanzapine 10 mg nightly. 6. Continue venlafaxine XR 225 mg daily 7. Continue to use olanzapine 5 mg as needed for agitation. 8. Zolpidem tartrate 5 mg p.o. nightly p.r.n. insomnia. 9. Check CBC, CMP. 10. Start iron supplements. 11. Anticipated length of stay is 5-7 days. Patient is on a 14 day involuntary treatment hold. Previous recommendation that patient be discharged on a 90 LR O at the end of her 14 Rajan Amos MD Apr 03, 2017 14:07
[2017-04-03 15:53] LABS: BASOPHILS % (AUTO) 0.6 % (0-3); EOSINOPHILS % (AUTO) 3.3 % (0-5); MONOCYTES % (AUTO) 8.1 % (4-12); Mean Corpuscular Hemoglobin 28.5 pg (27.0-35.0); NEUTROPHILS % (AUTO) 66.5 % (40-74); Platelet Count 226 bil/L (150-400)
[2017-04-03] MEDS: OLANZapine Zydis ODT 5 mg Tablet PO SCH (20:16)
[2017-04-04] MEDS: OLANZapine Zydis ODT 5 mg Tablet PO PRN (01:31)
[2017-04-04] MEDS: Venlafaxine XR 75 mg ER24 Capsule PO SCH (08:27)
[2017-04-04 12:48] VITALS: BP 132/85; PULSE 79; RESP 16
--- NOTE | 2017-04-04 15:22 | PCM.PNPSY ---
Subjective Date of Service Apr 04, 2017 Subjective The patient reports that she feels that she is doing better but that she is not quite ready for discharge. She stated that she was not certain whether she was well enough that at the next crisis she would not decompensate. She stated that over the last couple of days she is started to have a joyful feeling again which is welcome. She states that she would "like to settle into myself with being able to jump into the next step without apprehension." We discussed using natural methods to assist with sleep and the patient was agreeable to melatonin. Sleep: 1.75 hours per staff 7-8 hours according to patient. Patient felt rested. Appetite: Good Suicidal and homicidal ideation: Denies Auditory hallucinations/Visual hallucinations: Denies Other Psychotic Symptoms: N/A Anxiety: 01/08 primarily due to anxiety about discharge Depression: -11/08 Current Medications Current Medications Ferrous Sulfate 325 mg DAILYWM PO Last administered on 04/04/17 08:27; Admin Dose 325 MG; Start 04/03/17 at 17:00 Venlafaxine HCl 225 mg DAILYWM PO Last administered on 04/04/17 08:27; Admin Dose 225 MG; Start 04/03/17 at 08:00 Mental Status Exam Vital Signs Vital Signs Date Time Temp Pulse Resp B/P Pulse Ox O2 Delivery O2 Flow Rate FiO2 04/04/17 12:48 36.4 79 16 132/85 Appearance: Neat/well groomed Attitude: Pleasant, Cooperative Behavior: No unusual behavior Affect: Well Modulated/Appropriate Mood: Dysthymic Thought Process/Associations: Goal Directed Speech Production: Normal Speech Rate: Normal Speech Articulation: Normal Thought Content: Appropriate Danger to Self/Suicidal Ideati: None Danger to Others: None Hallucinations: Auditory (Denies), Visual (Denies) Consciousness: Alert Orientation: Person, Place, Date, Situation Memory: Grossly Intact Estimate Intellectual Function: Average Basis for IQ estimate: Word use/vocabulary, Educational history, Employment history Attention/Concentration & Cogn: Grossly Intact Insight: Good Judgement: Good Result Diagram: 04/03/17 1529 04/03/17 1529 Mental Health Plan The patient is a 41-year-old female with a history of major depression,recurrent , with psychotic features who was detained on a 72-hour hold. She has a history of several prior episodes, the 1st after the loss of their son. She had a similar episode earlier this year and was sent to [place] for psychiatric admission, and diagnosis per her was depression with psychotic features. [facility] indicate she was previously detained in September 2016 and was in inpatient treatment for approximately two weeks and discharged to community followup with Tiki Cosby. She has a history of multiple CARLY evaluation in attempts to stabilize in the community. She was detained as gravely disabled with "paranoid and delusional thoughts, extreme depression and anxiety, labile affect (ongoing almost continual crying spells), extreme confusion, identity confusion, poor memory...." Records also indicate that she did not believe her was her and questioned the identity of herself and others. The patient has made significant improvement with the addition of olanzapine. The patient reports no particular side effects with the increase in venlafaxine. We discussed eventually staying on the increased venlafaxine and tapering off olanzapine in order to avoid metabolic issues and the patient was agreeable to this plan. To that end, the as needed olanzapine will be discontinued. We will start supplemental melatonin. Hemoglobin was slightly decreased at 11.9 and patient is on supplemental iron. Discussed discharge by end of week or possibly on LRO with 7 additional days depending on how patient progresses. [place] Major depression, recurrent, with psychotic features PTSD features [place] II borderline personality traits [place] III See past medical history. [place] IV Grief over of child, separation from marriage. [place] V Global Assessment of Functioning 40. Treatments 1. The patient is admitted to the inpatient unit and will be provided a safe and secure environment. 2. The patient is denying current active suicidality and is not in need of a one-to-one at this time. 3. The patient is encouraged to participate with group and milieu activities. 4. The patient will be seen by the treatment team on a daily basis to assess symptoms, side effects and response to treatment. 5. Continue olanzapine 10 mg nightly. 6. Continue venlafaxine XR 225 mg daily 7. Discontinue olanzapine 5 mg as needed for agitation. 8. Zolpidem tartrate 5 mg p.o. nightly p.r.n. insomnia. 9. Melatonin 5 mg at 8:30 PM 10. Anticipated length of stay is 5-7 days. Patient is on a 14 day involuntary treatment hold. Previous recommendation that patient be discharged on a 90 LR O at the end of her 14 . Rajan Sow MD Apr 04, 2017 15:22 Rajan Sow MD Apr 04, 2017 15:22
[2017-04-04] MEDS: OLANZapine Zydis ODT 5 mg Tablet PO SCH (20:32)
[2017-04-05] MEDS: Venlafaxine XR 75 mg ER24 Capsule PO SCH (09:01)
[2017-04-05 14:00] VITALS: BP 120/78; PULSE 89; RESP 18
--- NOTE | 2017-04-05 15:19 | PCM.PNPSY ---
Subjective Date of Service Apr 05, 2017 Subjective The patient reports that she feels that she is doing better but that she is still not quite ready for discharge. The patient reports that she has worked on 3 lists for different areas of her life so that she will not feel so overwhelmed when she returns home. She states that she feels "pretty calm." She denies racing thoughts. She reports that her 9-year-old child went to their first day of school and this went well according to her . She denies any medical problems or side effects. Sleep: 5+ hours Appetite: Reports a little elevated Suicidal and homicidal ideation: Denies Auditory hallucinations/Visual hallucinations: Denies Other Psychotic Symptoms: N/A Anxiety: -09/10 "normal" Depression: -12/08 Current Medications Current Medications Ferrous Sulfate 325 mg DAILYWM PO Last administered on 04/05/17 09:01; Admin Dose 325 MG; Start 04/03/17 at 17:00 Melatonin 5 mg 2030 PO Last administered on 04/04/17 20:32; Admin Dose 5 MG; Start 04/04/17 at 20:30 Mental Status Exam Appearance: Neat/well groomed Attitude: Pleasant, Cooperative Behavior: No unusual behavior Affect: Well Modulated/Appropriate Mood: Dysthymic Thought Process/Associations: Goal Directed Speech Production: Normal Speech Rate: Normal Speech Articulation: Normal Thought Content: Appropriate Danger to Self/Suicidal Ideati: None Danger to Others: None Hallucinations: Auditory (Denies), Visual (Denies) Consciousness: Alert Orientation: Person, Place, Date, Situation Memory: Grossly Intact Estimate Intellectual Function: Average Basis for IQ estimate: Word use/vocabulary, Educational history, Employment history Attention/Concentration & Cogn: Grossly Intact Insight: Good Judgement: Good Result Diagram: 04/03/17 1529 04/03/17 1529 Mental Health Plan The patient is a 41-year-old female with a history of major depression,recurrent , with psychotic features who was detained on a 72-hour hold. She has a history of several prior episodes, the 1st after the loss of their son. She had a similar episode earlier this year and was sent to [place] for psychiatric admission, and diagnosis per her was depression with psychotic features. [facility] indicate she was previously detained in September 2016 and was in inpatient treatment for approximately two weeks and discharged to community followup with Tiki Cosby. She has a history of multiple CARLY evaluation in attempts to stabilize in the community. She was detained as gravely disabled with "paranoid and delusional thoughts, extreme depression and anxiety, labile affect (ongoing almost continual crying spells), extreme confusion, identity confusion, poor memory...." Records also indicate that she did not believe her was her and questioned the identity of herself and others. The patient has made significant improvement with the addition of olanzapine. The patient reports no particular side effects with the increase in venlafaxine. We discussed eventually staying on the increased venlafaxine and tapering off olanzapine in order to avoid metabolic issues and the patient was agreeable to this plan. The patient has so far tolerated the discontinuation of as needed olanzapine. She reports feeling that the supplemental melatonin was helpful. She is unsure whether she might be having mild side effects from the iron pill but is so far had no side effects today. Discussed discharge by end of week or possibly on LRO with 7 additional days depending on how patient progresses. [place] I Major depression, recurrent, with psychotic features PTSD features [place] II borderline personality traits [place] III See past medical history. [place] IV Grief over of child, separation from marriage. [place] V Global Assessment of Functioning 40. Treatments 1. The patient is admitted to the inpatient unit and will be provided a safe and secure environment. 2. The patient is denying current active suicidality and is not in need of a one-to-one at this time. 3. The patient is encouraged to participate with group and milieu activities. 4. The patient will be seen by the treatment team on a daily basis to assess symptoms, side effects and response to treatment. 5. Continue olanzapine 10 mg nightly. 6. Continue venlafaxine XR 225 mg daily 7. Zolpidem tartrate 5 mg p.o. nightly p.r.n. insomnia. 8. Melatonin 5 mg at 8:30 PM 9. Anticipated length of stay is 5-7 days. Patient is on a 14 day MR involuntary treatment hold. Previous recommendation that patient be discharged on a 90 LR O at the end of her 14 MR, but this may not be necessary. Rajan Swo MD Apr 05, 2017 15:19
[2017-04-05] MEDS: OLANZapine Zydis ODT 5 mg Tablet PO SCH (21:15)
[2017-04-06] MEDS: Venlafaxine XR 75 mg ER24 Capsule PO SCH (08:30)
[2017-04-06 11:30] VITALS: BP 132/79; PULSE 90; RESP 16
[2017-04-06 17:42] VITALS: BP 132/79; PULSE 90; RESP 16
[2017-04-06] MEDS: OLANZapine Zydis ODT 5 mg Tablet PO SCH (20:45)
--- NOTE | 2017-04-06 21:46 | PCM.PNPSY ---
Subjective Date of Service Apr 06, 2017 Subjective The patient reports that she is feeling better today and attributes part of this to creating an outline for a book, "[employer] [employer]" to help her heal from the of her child. She reports being tired last night but feeling more optimistic about her future. Has list of things to work on for shop, life , and work. She denies side effects. Sleep: 6.75 hours Appetite: Good Suicidal and homicidal ideation: denies Auditory hallucinations: denies Visual hallucinations: denies Other Psychotic Symptoms: N/A Anxiety: 0/10, "feels safe" Depression: "acceptable at present" Current Medications Current Medications Melatonin 5 mg 2030 PO Last administered on 04/05/17t 21:15; Admin Dose 5 MG; Start 04/04/17 at 20:30 Mental Status Exam Vital Signs Vital Signs Date Time Temp Pulse Resp B/P Pulse Ox O2 Delivery O2 Flow Rate FiO2 04/06/17 11:30 36.1 90 16 132/79 Appearance: Neat/well groomed Attitude: Pleasant, Cooperative Behavior: No unusual behavior Affect: Well Modulated/Appropriate Mood: Euthymic Thought Process/Associations: Logical/Sequential, Goal Directed Speech Production: Normal Speech Rate: Normal Speech Articulation: Normal Thought Content: Appropriate Danger to Self/Suicidal Ideati: None Danger to Others: None Hallucinations: Auditory (Denies), Visual (Denies) Consciousness: Alert Orientation: Person, Place, Date, Situation Memory: Grossly Intact Estimate Intellectual Function: Average Basis for IQ estimate: Word use/vocabulary, Educational history, Employment history Attention/Concentration & Cogn: Grossly Intact Insight: Good Judgement: Good Result Diagram: 04/03/17 1529 04/03/17 1529 Mental Health Plan The patient is a 41-year-old female with a history of major depression,recurrent , with psychotic features who was detained on a 72-hour hold. She has a history of several prior episodes, the 1st after the loss of their son. She had a similar episode earlier this year and was sent to [place] for psychiatric admission, and diagnosis per her was depression with psychotic features. [facility] indicate she was previously detained in September 2016 and was in inpatient treatment for approximately two weeks and discharged to community followup with Tiki Cosby. She has a history of multiple CARLY evaluation in attempts to stabilize in the community. She was detained as gravely disabled with "paranoid and delusional thoughts, extreme depression and anxiety, labile affect (ongoing almost continual crying spells), extreme confusion, identity confusion, poor memory...." Records also indicate that she did not believe her was her and questioned the identity of herself and others. The patient feels that she is making improvements and continues to report decrease in depression. The patient reports no particular side effects with the increase in venlafaxine. She reports feeling that the supplemental melatonin was helpful. Discussed discharge by end of week or possibly on LRO with 7 additional days depending on how patient progresses. [place] I Major depression, recurrent, with psychotic features PTSD features [place] II borderline personality traits [place] III See past medical history. [place] IV Grief over of child, separation from marriage. [place] V Global Assessment of Functioning 40. Treatments 1. The patient is admitted to the inpatient unit and will be provided a safe and secure environment. 2. The patient is denying current active suicidality and is not in need of a one-to-one at this time. 3. The patient is encouraged to participate with group and milieu activities. 4. The patient will be seen by the treatment team on a daily basis to assess symptoms, side effects and response to treatment. 5. Continue olanzapine 10 mg nightly. 6. Continue venlafaxine XR 225 mg daily 7. Zolpidem tartrate 5 mg p.o. nightly p.r.n. insomnia. 8. Melatonin 5 mg at 8:30 PM 9. Anticipated length of stay is 5-7 days. Patient is on a 14 day MR involuntary treatment hold. Previous recommendation that patient be discharged on a 90 LR O at the end of her 14 MR, but this may not be necessary. Rajan Sow MD Apr 06, 2017 16:25
[2017-04-07] MEDS: Venlafaxine XR 75 mg ER24 Capsule PO SCH (08:20)
[2017-04-07 10:36] VITALS: BP 134/87; PULSE 96; RESP 16
--- NOTE | 2017-04-07 13:41 | PCM.PNPSY ---
Subjective Date of Service Apr 07, 2017 Subjective The patient reports that she is "grown a lot spiritually and emotionally. I felt I did not have a protector, now I realize I am my own protector." Patient has completed her early warning signs and safety plan. She has not yet worked on the instructions for those helping her when she is in need to work on that today. She reports that her will be dropping off their daughter at kindergarten and then coming to pick her up tomorrow assuming all goes well with court. She reports that she is "sleeping well, hard to wake up." She finds this reassuring as when she is ill she is "on high alert" and does not typically sleep well. Sleep: 6.25 hours as above Appetite: Good Suicidal and homicidal ideation: Denies Auditory hallucinations: Denies Visual hallucinations: Denies Other Psychotic Symptoms: N/A Anxiety: 11/08 Depression: 4-12/08 Mental Status Exam Vital Signs Vital Signs Date Time Temp Pulse Resp B/P Pulse Ox O2 Delivery O2 Flow Rate FiO2 04/07/17 10:36 36.2 96 16 134/87 Appearance: Neat/well groomed Attitude: Pleasant, Cooperative Behavior: No unusual behavior Affect: Well Modulated/Appropriate Mood: Euthymic Thought Process/Associations: Logical/Sequential, Goal Directed Speech Production: Normal Speech Rate: Normal Speech Articulation: Normal Thought Content: Appropriate Danger to Self/Suicidal Ideati: None Danger to Others: None Hallucinations: Auditory (Denies), Visual (Denies) Consciousness: Alert Orientation: Person, Place, Date, Situation Memory: Grossly Intact Estimate Intellectual Function: Average Basis for IQ estimate: Word use/vocabulary, Educational history, Employment history Attention/Concentration & Cogn: Grossly Intact Insight: Good Judgement: Good Result Diagram: 04/03/17 1529 04/03/17 1529 Mental Health Plan The patient is a 41-year-old female with a history of major depression,recurrent , with psychotic features who was detained on a 72-hour hold. She has a history of several prior episodes, the 1st after the loss of their son. She had a similar episode earlier this year and was sent to [place] for psychiatric admission, and diagnosis per her was depression with psychotic features. [facility] indicates she was previously detained in September 2016 and was in inpatient treatment for approximately two weeks and discharged to community followup with Tiki Cosby. She has a history of multiple CARLY evaluation in attempts to stabilize in the community. She was detained as gravely disabled with "paranoid and delusional thoughts, extreme depression and anxiety, labile affect (ongoing almost continual crying spells), extreme confusion, identity confusion, poor memory...." Records also indicate that she did not believe her was her and questioned the identity of herself and others. The patient was subsequently detained on a 14 day hold and has responded to a combination of venlafaxine and olanzapine. The patient feels that she is making improvements and continues to report decrease in depression. She reports feeling that the supplemental melatonin was helpful. Discussed discharge by tomorrow, possibly on LRO with 7 additional days depending on how patient progresses. No side effects. [place] I Major depression, recurrent, with psychotic features PTSD features [place] II borderline personality traits [place] III See past medical history. [place] IV Grief over of child, separation from marriage. [place] V Global Assessment of Functioning 45. Treatments 1. The patient is admitted to the inpatient unit and will be provided a safe and secure environment. 2. The patient is denying current active suicidality and is not in need of a one-to-one at this time. 3. The patient is encouraged to participate with group and milieu activities. 4. The patient will be seen by the treatment team on a daily basis to assess symptoms, side effects and response to treatment. 5. Continue olanzapine 10 mg nightly. 6. Continue venlafaxine XR 225 mg daily 7. Zolpidem tartrate 5 mg p.o. nightly p.r.n. insomnia. 8. Melatonin 5 mg at 8:30 PM 9. Anticipated length of stay is 1-2 days. Patient is on a 14 day MR involuntary treatment hold. Previous recommendation that patient be discharged on a 90 LR O at the end of her 14 MR, but this may not be necessary. Rajan Sow MD Apr 07, 2017 13:40
[2017-04-07] MEDS: OLANZapine Zydis ODT 5 mg Tablet PO SCH (20:47)
[2017-04-08] MEDS: Venlafaxine XR 75 mg ER24 Capsule PO SCH (08:44)
[2017-04-08 12:30] VITALS: BP 132/79; PULSE 106; RESP 16
--- NOTE | 2017-04-08 13:29 | PCM.DIMED ---
Discharge Instructions Date of Service Apr 08, 2017 Dates of Hospitalization Mar 24, 2017 at 12:14 Discharge Diagnosis Discharge Diagnosis [place] I Major depression, recurrent, with psychotic features [place] II [place] III None acute, see past medical history [place] IV Grief over of child, separation from marriage. [place] V Global Assessment of Functioning 50 Test Results Test Results CBC Test 04/03/17 15:29 White Blood Count 6.7th/mm3 (3.8-10.1) Red Blood Count 4.17mil/mm3 (3.90-5.20) Hemoglobin 11.9g/dL (12.0-15.6) Hematocrit 36.7% (35.0-46.0) Mean Corpuscular Volume 88.0fL (81-100) Mean Corpuscular Hemoglobin 28.5pg (27.0-35.0) Mean Corpuscular Hemoglobin Concent 32.4% (32.0-37.0) Red Cell Distribution Width 14.0% (12.3-15.4) Platelet Count 226bil/L (150-400) Neutrophils (%) (Auto) 66.5% (40-74) Lymphocytes (%) (Auto) 21.4% (14-46) Monocytes (%) (Auto) 8.1% (4-12) Eosinophils (%) (Auto) 3.3% (0-5) Basophils (%) (Auto) 0.6% (0-3) CMP Test 04/03/17 15:29 Sodium Level 137mEq/L Potassium Level 4.1mEq/L Chloride Level 97mEq/L Carbon Dioxide Level 27mmol/L Blood Urea Nitrogen 15mg/dL Creatinine 0.63mg/dL Estimat Glomerular Filtration Rate 149mL/min Glucose Level 115mg/dL Calcium Level 9.1mg/dL Total Bilirubin 0.2mg/dL Aspartate Amino Transf (AST/SGOT) 17U/L Alanine Aminotransferase (ALT/SGPT) 14U/L Alkaline Phosphatase 69U/L Total Protein 7.1g/dL Albumin 4.1g/dL Thyroid Stimulating Hormone (TSH) 1.020uIU/mL Free Thyroxine 0.90ng/dL Diet Discharge Diet: No restrictions Activity Discharge Activity: No restrictions Patient Instructions Patient Instructions Should you have any thoughts of harming yourself or others, please call the crisis line, your provider, 911, or go to the nearest Emergency Department. Do not change or discontinue your medications without discussing with your provider. You have been given a prescription for 30 days supply of your new medication Follow-up plan Intake Patel Shirley on 04/11/17 at 11am [place] [id number] Medication Management [place] will need to reschedule Counselor Ramandeep Melendez will need to reschedule [address] [place] [address] Rajan Sow MD Apr 08, 2017 13:29
[2017-04-08] MEDS ORDERED: FERR-74 PO (13:35)
[2017-04-08] MEDS ORDERED: OLAN10TA19 PO (13:35)
[2017-04-08] MEDS ORDERED: MELA5TAB14 PO (13:35)
[2017-04-08] MEDS ORDERED: VENL75CA PO (13:35)
--- NOTE | 2017-04-09 17:19 | PCM.DC.MED ---
Discharge Summary Date of Service Apr 08, 2017 Dates of Hospitalization Date of Hospital Admission Mar 24, 2017 at 12:14 Date of Discharge: Apr 08, 2017 Providers: Admitting Physician: Daniel Beasley MD Primary Care Physician: Cesar Attending Physician: Daniel Beasley MD Diagnosis at Time of Discharge Diagnosis at Time of Discharge [place] I Major depression, recurrent, with psychotic features [place] II Defer [place] III None acute, see past medical history [place] IV Grief over of child, separation from marriage. [place] V Global Assessment of Functioning 50 Brief History IDENTIFYING DATA: The patient is a 41-year-old female with a history of major depression, recurrent, with psychotic features who is detained on a 72-hour hold. CHIEF COMPLAINT: The patient was unable to provide any chief complaint and instead appear to shudder at times while standing in the bathroom door way and clutching the frame of the door. HISTORY OF PRESENT ILLNESS: The information is taken from the [facility] report and the [facility] emergency department report. The patient was brought in by her , and they are apparently currently . He reportedly was with her and they were going to picker and sorter load and unload an automobile, when he noticed that she seemed confused and distracted and took over driving. This rapidly progressed and she was unable to speak at all and intermittently repeated phrases to herself. She has a history of several prior episodes, the 1st after the loss of their son. They have two daughters currently at a friend's house and they normally reside with the patient. She had a similar episode earlier this year and was sent to [facility] for psychiatric admission, and diagnosis per her was depression with psychotic features. According to the [facility] notes, [facility] indicate she was previously detained in September 2016 and was in inpatient treatment for approximately two weeks and discharged to community followup with [facility]. She has a history of multiple [facility] evaluation in attempts to stabilize the community and was detained as gravely disabled when her symptoms were described as "paranoid and delusional thoughts, extreme depression and anxiety, labile affect (ongoing almost continual crying spells), extreme confusion, identity confusion, poor memory...." Records also indicate that she did not believe her was her and questioned the identity of herself and others. According to [facility] notes, law enforcement was called to assist and took her home where she continued to decline and was then brought to the emergency department. According to the , this is the 3rd episode of psychosis, the 1st being after their 7-week-old son and the 2nd earlier this year. He reported that she believes that she is traveling through time and trying to get to when their son was alive and there is something about the eclipse to where she thinks she is no longer able to do this. According to one of the nurses during intake today, she did mention something about and eclipse. According to the patient's daughter, over the weekend she appeared to be down and had spent much time in bed. There is no history of violence or suicidal tendencies, according to the report. Although able to engage verbally with the [facility], she was not able to provide any coherent history. PAST PSYCHIATRIC HISTORY: As noted above, the patient has been previously psychiatrically hospitalized, most recently in September 2016 and is followed in the community, [facility]. While hospitalized she was treated with olanzapine 10mg and escitalopram 10mg daily. Hospital Course The patient was admitted to the unit and continued on venlafaxine 75mg twice daily for depression and olanzapine 5mg twice a day was started for psychosis as this had been effective in the past. The patient was quite agitated at times and required five episodes of seclusion during the first half of her hospital stay. During the initial part of her stay, she had decreased insight into her illness and required a second opinion for medication override and received olanzapine IM backup on 3 occasions in the first part of her stay. Venlfaxine was increased to 225 mg daily to better address anxiety and depression and olanzapine was consolidated to 10mg at bedtime. The patient responded fairly effectively to this combination and demonstrated increased insight into her illness and the need for treatment. Due to ongoing difficulties with insomnia, melatonin was added which was found to be effective for insomnia. By the time of discharge the patient reported that she had " grown a lot spiritually and emotionally." The patient worked well on her early warning signs and safety plan and also worked on the instructions for those helping her when she is in need. She also had made a list of activities that needed to be accomplished once she had returned home in order to not be overwhelmed. She reported that her was planning to take FMLA to assist her during her recovery. At the time of discharge, the patient was reporting her mood was somewhat apprehensive but ready for discharge. Sleep was reported as "still pretty hard" 6+ hours per staff. Appetite was reported as still increased. Her anxiety was reported as 6-7/10 and depression as 2-3/10. She denied auditory or visual hallucinations, paranoia, and any thought, intent or plan of hurting herself or others. She denied medication side effects. Exam Vital Signs (Last) Date Time Temp Pulse Resp B/P Pulse Ox O2 Delivery O2 Flow Rate FiO2 04/07/17 10:36 36.2 96 16 134/87 Exam Discharge Mental Status Exam Appearance: Neat/well groomed Attitude: Pleasant, Cooperative Behavior: No unusual behavior Affect: Well Modulated/Appropriate Mood: Euthymic Thought Process/Associations: Logical/Sequential, Goal Directed Speech Production: Normal Speech Rate: Normal Speech Articulation: Normal Thought Content: Appropriate Danger to Self/Suicidal Ideation: None Danger to Others: None Hallucinations: Auditory (Denies), Visual (Denies) Consciousness: Alert Orientation: Person, Place, Date, Situation Memory: Grossly Intact Estimate Intellectual Function: Average Basis for IQ estimate: Word use/vocabulary, Educational history, Employment history Attention/Concentration & Cognition: Grossly Intact Insight: Good Judgment: Good Test 04/03/17 15:29 White Blood Count 6.7th/mm3 (3.8-10.1) Red Blood Count 4.17mil/mm3 (3.90-5.20) Hemoglobin 11.9g/dL (12.0-15.6) Hematocrit 36.7% (35.0-46.0) Mean Corpuscular Volume 88.0fL (81-100) Mean Corpuscular Hemoglobin 28.5pg (27.0-35.0) Mean Corpuscular Hemoglobin Concent 32.4% (32.0-37.0) Red Cell Distribution Width 14.0% (12.3-15.4) Platelet Count 226bil/L (150-400) Neutrophils (%) (Auto) 66.5% (40-74) Lymphocytes (%) (Auto) 21.4% (14-46) Monocytes (%) (Auto) 8.1% (4-12) Eosinophils (%) (Auto) 3.3% (0-5) Basophils (%) (Auto) 0.6% (0-3) Sodium Level 137mEq/L (134-144) Potassium Level 4.1mEq/L (3.5-5.2) Chloride Level 97mEq/L (97-108) Carbon Dioxide Level 27mmol/L (18-29) Blood Urea Nitrogen 15mg/dL (6-24) Creatinine 0.63mg/dL (0.57-1.00) Estimat Glomerular Filtration Rate 149mL/min (>59) Glucose Level 115mg/dL (60-99) Calcium Level 9.1mg/dL (8.5-10.1) Total Bilirubin 0.2mg/dL (0.0-1.2) Aspartate Amino Transf (AST/SGOT) 17U/L (0-50) Alanine Aminotransferase (ALT/SGPT) 14U/L (0-32) Alkaline Phosphatase 69U/L (25-150) Total Protein 7.1g/dL (6.4-8.4) Albumin 4.1g/dL (3.4-5.0) Thyroid Stimulating Hormone (TSH) 1.020uIU/mL (0.450-4.500) Free Thyroxine 0.90ng/dL (0.82-1.77) Discharge Medications Discharge Medications Ferrous Sulfate (Feosol) 325 Mg Tablet 325 MG PO DAILYWM Prescribed by: DANIEL BEASLEY MD Melatonin (Melatonin) 5 Mg Tablet 5 MG PO 2029 Prescribed by: DANIEL BEASLEY MD Olanzapine (Olanzapine) 10 Mg Tablet 10 MG PO HS Prescribed by: DANIEL BEASLEY MD Venlafaxine ER (Effexor XR) 75 Mg Capsule 225 MG PO DAILYWM Prescribed by: DANIEL BEASLEY MD Followup Plan Disposition: No indication for further shelter at this time, patient was released from hold on a 90 day less restrictive order. The patient verbally consented to take the prescribed medications. The patient verbally expressed understanding of the risks, benefits, alternative treatment options, and risks of not taking the prescribed medication. The patient verbally expressed understanding of the medication instructions, that she will adhere to the prescribed medication, and that she will go to all aftercare scheduled appointments. Follow-up plan Intake Patel Shirley on 04/11/17 at 11am [place] [id number] Medication Management SOREN [place] will need to reschedule Counselor Ramandeep Melendez will need to reschedule [address] [place] [address] Discharge Diet: No restrictions Discharge Activity: No restrictions Patient Instructions Should you have any thoughts of harming yourself or others, please call the crisis line, your provider, 911, or go to the nearest Emergency Department. Do not change or discontinue your medications without discussing with your provider. You have been given a prescription for 30 days supply of your new medication Daniel Beasley MD Apr 08, 2017 16:56
== END 2017-04-08 15:32 | disposition home or self-care (01) | DRG 885 ==
LOC: UNDOADMIN 10:28 → MHC 10:28
PROVIDERS: ADMIT Psychiatry & Neurology Psychiatry; ATTEND Psychiatry & Neurology Psychiatry
DX: F33.3 Major depressive disorder, recurrent, severe with psychotic symptoms (principal); Z63.4 Disappearance and death of family member